=== PATIENT | female | born 1960 | race Caucasian/White ===

== ENCOUNTER 2023-10-23 13:19 | Emergency (ER) | payer BC, SELFPAY ==
[2023-10-23 13:24] VITALS: BP 178/99
[2023-10-23] MEDS: NSS 1000 IV (14:20)
[2023-10-23 14:26] LABS: % Basophils 0.9 % (0-2); % Eosinophils 1.5 % (0-6); % Immature Granulocytes 0.4 % (0-0.5); % Lymphocytes 25.3 % (20.5-51.1); % Neutrophils 64.9 % (42.2-75.2); Absolute Basophils 0.1 10^3/uL (0-0.2); Absolute Eosinophils 0.1 10^3/uL (0-0.7); Absolute Lymphocytes 2.3 10^3/uL (1.2-3.4); Absolute Monocytes 0.6 10^3/uL (0.1-0.6); Absolute Neutrophils 5.8 10^3/uL (1.4-6.5); Hematocrit 38.3 % (37.0-47.0); Hemoglobin 13.1 g/dL (12.0-16.0); Mean Corp Hgb Conc. 34.2 g/dL (33.0-37.0); Mean Corpuscular Hgb 29.2 pg (27.0-31.0); Mean Corpuscular Volume 85.5 fL (81.0-99.0); Mean Platelet Volume 9.9 fL (7.4-10.4); Nucleated Red Blood Cells % 0 %; Platelet Count 253 10^3/uL (130-400); Red Blood Cell Count 4.48 10^6/uL (4.20-5.40); Red Cell Dist. Width 12.6 % (11.5-14.5)
[2023-10-23 14:40] LABS: ALT (SGPT) 28 U/L (0-35); AST (SGOT) 31 U/L (14-36); Albumin 4.7 g/dl (3.5-5.0); Alkaline Phosphatase 61 U/L (38-126); Blood Urea Nitrogen 15 mg/dl (7-17); Calcium 9.6 mg/dl (8.4-10.2); Carbon Dioxide 29 mmol/L (22-30); Chloride 104 mmol/L (98-107); Glucose 100 mg/dl (70-99); Magnesium 1.9 mg/dl (1.6-2.3); Potassium 3.7 mmol/L (3.5-5.1); Sodium 140 mmol/L (135-145); Total Bilirubin 0.4 mg/dl (0.2-1.3); Total Protein 7.4 g/dl (6.3-8.2); eGFR > 60.00
--- NOTE | 2023-10-23 14:42 | ED.GENMED ---
History of Present Illness
General
Chief Complaint: Heart Rate Problem
Source: patient
Exam Limitations: none
Time Seen by Provider: 10/23/23 14:05
Nursing documentation reviewed up to this point in time: agreed with
Travel History
Have you had any contact with someone who has COVID-19?: No
Do you have any symptoms of coronavirus? Fever > 100 degrees, chills, cough, shortness of breath, sore throat, loss of taste or smell, muscle aches, or headache?: No
History of Present Illness
History of Present Illness:
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 Denies any chest pain
shortness of breath nausea vomiting any recent illness any change in medications or caffeine use.
Past History
Past History
ED Past Medical History: HTN
ED Past Surgical History:
Social History
Tobacco: Non-smoker
Alcohol: Occasional
Drug: None
Personal:
Living: with family
Employment: Employed
Family History
Family History: Other
Review of Systems
Review of Systems
Allergies reviewed?: Yes
All Other Systems: ROS reviewed and negative except as documented in HPI and ROS
Phy Exam
Physical Exam
Physical Exam:
GENERAL: Alert , in no apparent distress
EYE: pupils equal and reactive
NECK: Supple, no significant adenopathy.
ENT: o/p clr, mmm.
CARDIAC: Regular rate and rhythm .
LUNGS: Clear breath sounds bilaterally, no acute respiratory distress, no wheezes/rales/rhonchi
ABDOMEN: Soft, without focal tenderness, no r/g, no cvat
NEUROLOGICAL: Alert and oriented, no focal neuro deficits
SKIN: Warm and dry, skin intact.
MUSCULOSKELETAL: No edema, well perfused.
PSYCH: Normal and appropriate interaction.
Course
Orders/Labs/Results
Orders:
Orders
10/23/23 13:20
Electrocardiogram (*1) Urgent
Reason for Study: Chest Pain
EKG- Treatment ONCE
10/23/23 14:11
0.9% Sodium Chloride 1000 ml [Nss] 1,000 ml IV BOLUS
10/23/23 14:14
Complete Blood Count/With Diff Urgent
Comprehensive Metabolic Panel Urgent
Magnesium Urgent
TSH Urgent
Troponin I Urgent
Abnormal Lab Results
10/23/23
14:14
Glucose 100 H mg/dl
(70-99)
10/23/23 14:14
10/23/23 14:14
Vital Signs
Initial and Last Documented VS:
Initial Vital Signs
Temp Pulse Resp BP Pulse Ox
98.3 F 75 20 178/99 99
10/23/23 13:24 10/23/23 13:24 10/23/23 13:24 10/23/23 13:24 10/23/23 13:24
Last Documented Vital Signs
Temp Pulse Resp BP Pulse Ox
98.3 F 68 12 178/99 99
10/23/23 13:24 10/23/23 14:15 10/23/23 14:15 10/23/23 13:24 10/23/23 13:24
MDM/Problems Addressed
MDM/Problems Addressed:
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 She also claims that she was wearing a watch that alerted her to an abnormal heart
rate that was fluctuating between 70 and 90. Here on arrival blood pressure elevated otherwise vital signs are normal heart rate in the 70s labs were obtained and unremarkable. EKG showed sinus arrhythmia but no signs of additional arrhythmia.
*Critical Care Note
Total Time (30-74mins, 75-104mins- exclusive of procedures): Not Applicable
ED Attending Note
-
Portions of this chart may have been created with voice recognition software.� Occasional wrong word or��sound alike� substitutions may have occurred due to the inherent limitations of voice recognition software.
Discharge Plan
Departure
Patient Disposition: Home (Routine Discharge)
Date of Disposition: 10/23/23
Time of Disposition: 15:04
Patient with high blood pressure during this ER visit?: No
Condition: Good
Covid-19: Not Applicable
Discharge Problem:
Sinus arrhythmia
Instructions: Palpitations (DC)
Prescriptions:
New
metoprolol tartrate 25 mg tablet
25 mg PO DAILY Qty: 10 0RF
No Action
cyanocobalamin (vitamin B-12) 1,000 MCG tablet
1,000 mcg PO DAILY 0RF
lisinopril 5 MG tablet
7.5 mg PO DAILY Qty: 60 0RF
Referrals:
Ben Noonan MD [Active] - Follow up in 5-7 days
Chapo Akins DO [Family Provider] -
Activity Restrictions/Additional Instructions:
You came to the emergency department today with concerns of palpitations. Here you had what is called a sinus arrhythmia. You can take metoprolol to help with symptoms as needed. This can cause a decrease in your blood pressure so be careful when
taking his medications as this can cause some lightheadedness. Otherwise please follow closely with cardiology. Return to the emergency department for any worsening, new or concerning symptoms.
Interventions
Interventions:
*Risk Screen - Suicide Last Done: 10/23/23 13:24
*General Assessment Last Done: 10/23/23 13:24
*Neglect/Abuse Screening Last Done: 10/23/23 13:24
*ED COVID-19 Vaccine History Last Done: 10/23/23 14:01
ED- Cardiac Assessment Last Done: 10/23/23 14:01
ED- Pulmonary Assessment Last Done: 10/23/23 14:01
Discharge Date and Time
Print Language: [email or web address]
[2023-10-23 14:55] LABS: Troponin I < 0.012 ng/ml
[2023-10-23 15:10] LABS: TSH 1.45 uIU/ml (0.47-4.68)
[2023-10-23 15:12] VITALS: BP 139/82
== END 2023-10-23 15:22 | disposition home or self-care (01) ==
LOC: EMR 13:19
PROVIDERS: Physician Assistant; EMERGENCY PHYSICIAN Emergency Medicine; FAMILY PHYSICIAN Family Medicine
DX: I49.8 Other specified cardiac arrhythmias (principal); I10 Essential (primary) hypertension; E07.9 Disorder of thyroid, unspecified; Z87.442 Personal history of urinary calculi; Z87.891 Personal history of nicotine dependence
CPT/HCPCS: 99284; 96360; 80053; 83735; 84443; 84484; 85025; 93005

== ENCOUNTER → 2023-12-14 14:48 | Outpatient (REF) | payer BC, SELFPAY | LOC: HWRCS 14:48 | PROVIDERS: ATTENDING PHYSICIAN Internal Medicine Cardiovascular Disease; FAMILY PHYSICIAN Family Medicine | DX: E00.2 Congenital iodine-deficiency syndrome, mixed type (principal) | CPT/HCPCS: 93306 ==

== ENCOUNTER → 2024-03-18 09:22 | Outpatient (REF) | payer BC, SELFPAY | LOC: HWRAD 09:22 | PROVIDERS: ATTENDING PHYSICIAN Nurse Practitioner Family; FAMILY PHYSICIAN Family Medicine | DX: M25.551 Pain in right hip (principal) | CPT/HCPCS: 73502 ==